=== PATIENT | male | born 1990 | race African-American/Black ===

== ENCOUNTER 2018-10-12 12:32 | Emergency (ER) | payer BC, OTHER ==
--- NOTE | 2018-10-12 14:22 | RAD ---
LEFT SHOULDER THREE VIEWS: Indication: Left shoulder injury. FINDINGS: AC joint glenohumeral alignment appears within normal limits. The visualized left lung is clear. No a cute fracture or subluxation is evident. IMPRESSION: Radiographically normal left shoulder. POS: [facility]
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
== END 2018-10-12 15:15 | disposition home or self-care (01) ==
LOC: ERS 12:32
DX: M25.512 Pain in left shoulder (principal); M54.2 Cervicalgia; V43.62XA Car passenger injured in collision with other type car in traffic accident, initial encounter
CPT/HCPCS: 72125